=== PATIENT | female | born 1970 | race Caucasian/White ===

== ENCOUNTER 2018-01-30 10:40 | Emergency (ER) | payer OTHER ==
[~2018-01-30] VITALS: Ht 167.6 cm; Wt 63.5 kg
[~2018-01-30 10:40] MED LIST: ASPIR 8181 MG PO; ASPIRIN EC325 M1 PO; BACTRIM DS TAB1 EACH PO; CLEOCIN HCL300 MG PO; HYDROCODON-ACE1 EAC7 PO; HYDROCODONE-AP1 EAC6 PO; IBUPROFEN 600600 M1 PO; LIPITOR10 MG PO; NORCO 5-325 TA1 EACH PO; TAMSULOSIN HCL0.4 MG PO; TYLENOL325 MG PO; VENTOLIN HFA 1818 GM INH; VITAMIN B-1100 M1 PO
[2018-01-30] MEDS ORDERED: NAPROSYN500 MG PO (11:53)
[2018-01-30] MEDS ORDERED: TRAMADOL 50 MG50 MG PO (11:53)
[2018-01-30 12:15] VITALS: BP 136/81
== END 2018-01-30 12:15 | disposition home or self-care (01) ==
LOC: ER 10:40
DX: S83.91XA Sprain of unspecified site of right knee, initial encounter (principal); S09.90XA Unspecified injury of head, initial encounter; W18.30XA Fall on same level, unspecified, initial encounter; Y93.89 Activity, other specified; Y92.89 Other specified places as the place of occurrence of the external cause; Y99.8 Other external cause status; J45.909 Unspecified asthma, uncomplicated; G43.909 Migraine, unspecified, not intractable, without status migrainosus; F17.210 Nicotine dependence, cigarettes, uncomplicated

== ENCOUNTER 2019-09-22 11:43 | Inpatient (IN) | payer OTHER ==
[~2019-09-22] VITALS: Ht 167.6 cm; Wt 66.7 kg
[~2019-09-22 11:43] MED LIST changes: +NAPROSYN500 MG PO; +TRAMADOL 50 MG50 MG PO
[2019-09-22 11:45] VITALS: BP 140/78
[2019-09-22 12:08] LABS: URINE BLOOD 2+ (Negative); URINE CLARITY CLEAR; URINE COLOR YELLOW; URINE GLUCOSE-RANDOM* NEGATIVE (Negative); URINE KETONES 3+ (Negative); URINE LEUKOCYTES-REFLEX NEGATIVE (Negative); URINE NITRITE-REFLEX NEGATIVE (Negative); URINE PROTEIN (DIPSTICK) 2+ (Negative); URINE SPECIFIC GRAVITY >= 1.030 (1.005-1.035); URINE UROBILINOGEN 0.2 E.U./dl (0.2-1.0)
[2019-09-22 12:14] LABS: ICTOTEST (BILI CONFIRMATORY) Negative (Negative); URINE BILIRUBIN NEGATIVE (Negative)
[2019-09-22 12:15] LABS: URINE REDUCING SUBSTANCE NEGATIVE
[2019-09-22 12:29] LABS: BACTERIA-REFLEX 1-9 Few /HPF (None Seen); CASTS None Seen /LPF (None Seen); CRYSTALS None Seen /LPF (None Seen); SQUAMOUS >10 Many /LPF (0-3); URINE RBC 0-2 Rare /HPF (0-2); URINE WBC-REFLEX 0-5 Rare /HPF (0-5)
[2019-09-22 12:33] LABS: ALBUMIN 3.3 g/dL (3.4-5.0); CALCIUM 8.2 mg/dL (8.5-10.1); CREATININE 1.5 mg/dL (0.6-1.0); POTASSIUM 3.7 mmol/L (3.5-5.1); TOTAL BILIRUBIN 0.7 mg/dL (0.2-1.0); TOTAL PROTEIN 6.8 g/dL (6.4-8.2)
[2019-09-22 12:36] LABS: ABSOLUTE NEUTROPHILS 12.3 thou/uL (1.4-8.2); BASOPHILS 0.4 % (0.0-2.0); HEMATOCRIT 52.8 % (37.0-47.0); HEMOGLOBIN 17.6 gm/dL (12.0-15.0); LYMPHOCYTES 5.5 % (24.0-44.0); MCH 34.2 pg (26.0-34.0); MCHC 33.4 g/dL (28.0-37.0); MCV 102.5 fL (80.0-100.0); MONOCYTES 2.9 % (1.0-8.0); PLATELET COUNT 242 thou/uL (150-400); POLYS 91.2 % (36.0-66.0); RBC 5.15 mil/uL (4.20-5.00); RDW 13.3 % (10.5-14.5); WBC 13.5 thou/uL (4.0-11.0)
[2019-09-22 13:10] LABS: BE(vivo) -17.8 mmol/L (-2 to +3); HCO3 11.1 mmol/L (22.0-26.0); PCO2 VENOUS 36.7 mmHg (41.0-51.0); PO2 VENOUS 44.7 mmHg (35.0-45.0)
[2019-09-22 14:04] VITALS: BP 133/69
[2019-09-22 14:27] LABS: AMP/METHAMP Negative (Negative); BARBITURATES Negative (Negative); BENZODIAZEPINES Negative (Negative); COCAINE Negative (Negative); METHADONE Negative (Negative); OPIATES Negative (Negative); PCP Negative (Negative)
[2019-09-22 15:50] LABS: ANION GAP 23 mmol/L (7-16); BUN 12 mg/dL (7-18); CALCIUM 7.7 mg/dL (8.5-10.1); CHLORIDE 100 mmol/L (98-107); CO2 12 mmol/L (21-32); CREATININE 1.1 mg/dL (0.6-1.0); GLUCOSE 79 mg/dL (74-106); POTASSIUM 4.1 mmol/L (3.5-5.1); SODIUM 135 mmol/L (136-145)
[2019-09-22 15:55] LABS: ALBUMIN 3.8 g/dL (3.4-5.0); SGOT 29 U/L (15-37); SGPT 18 U/L (30-65); TOTAL BILIRUBIN 0.4 mg/dL (0.2-1.0); TOTAL PROTEIN 7.3 g/dL (6.4-8.2)
[2019-09-22 16:13] LABS: LIPASE 6149 U/L (73-393)
[2019-09-22 17:35] VITALS: BP 131/62
[2019-09-22 18:32] VITALS: BP 128/73
--- NOTE | 2019-09-22 18:38 | NUR ---
PT TRANSTERED TO THE UNIT FROM THE EMERGENCY DEPT. PT ORIENTED TO ROOM AND BED SPACE. IV FLUIDS STARTED AND MORPHINE GIVEN FOR PAIN WITH MOD RELIEF. PT PLACED ON MONITOR AND VITAL SIGNS TAKEN, NO CO'S AT THE PRESENT TIME.
--- NOTE | 2019-09-22 20:30 | NUR ---
ASSUMED CARE FROM DAY SHIFT. PT ALERT ORIENTED X4 ADMISSION ASSESSMENT AND DATA BASE COMPLETED. PT C/O ABD PAIN , HEATING PAD OREDERED. BLOOD GLUCOSE 62 JUICE GIVEN AND TOLERATED WELL RECHECKED AND BLOOD GLUCOSE 72. UP TO BATHROOM WITHOUT DIFF. 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 PAIN MEDICATION GIVEN , PT DENIES NAUSEA,. GI CONSULT CALLED . PT RESTED WELL THROUGHOUT HOURLY ROUNDS.
[2019-09-23 00:27] VITALS: BP 116/54
[2019-09-23 04:38] VITALS: BP 124/66
[2019-09-23 04:54] LABS: HEMATOCRIT 42.5 % (37.0-47.0); MCHC 34.6 g/dL (28.0-37.0); MCV 101.2 fL (80.0-100.0); RBC 4.2 mil/uL (4.20-5.00); RDW 13.3 % (10.5-14.5)
[2019-09-23 05:03] LABS: HEMOGLOBIN 14.7 gm/dL (12.0-15.0)
[2019-09-23 05:06] LABS: CALCIUM 8.8 mg/dL (8.5-10.1); MAGNESIUM 1.8 mg/dL (1.8-2.4)
[2019-09-23 07:20] VITALS: BP 134/84
[2019-09-23 12:49] VITALS: BP 125/74
[2019-09-23 15:54] VITALS: BP 119/76
--- NOTE | 2019-09-23 18:52 | NUR ---
RECEIVED PT'S CARE AROUND 0730; PT. ON BED; ALERT; DURING AM ASSESSMENT PT. AOX4; ST. PAIN 05/23; NO REQUESTED PRN PAIN MEDICATION; AM MEDICATIONS GIVEN; REQUESTED PRN PAIN MEDICATION; MEDICATION GIVEN; ST. 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 ON CL DIET; ORDERS RECEIVED; PT. TOLERATED WELL; ASSESSMENT CHARGED; FOLLOWING POC; WILL PASS ON REPORT;
[2019-09-23 19:51] VITALS: BP 142/74
[2019-09-24 01:11] LABS: GLYCOHEMOGLOBIN (HGB A1C) 5.2 % (4.8-5.6)
[2019-09-24 04:30] VITALS: BP 142/83
--- NOTE | 2019-09-24 04:38 | NUR ---
ASSUMED PT CARE AROUND 1930. AXOX4. INDEPENDENT WITH ADLs. VSS. KEPT NPO POST MN FOR EGD IN AM. NO S/S ACUTE DISTRESS NOTED OR REPORTED AT THIS TIME. WILL CONT TO MONITOR FOR ANY CHANGES IN CONDITION.
[2019-09-24 05:57] LABS: HEMATOCRIT 39.6 % (37.0-47.0); HEMOGLOBIN 13.9 gm/dL (12.0-15.0); RBC 3.96 mil/uL (4.20-5.00); RDW 13.2 % (10.5-14.5); WBC 4.8 thou/uL (4.0-11.0)
[2019-09-24 06:17] LABS: ALBUMIN 3.2 g/dL (3.4-5.0); CALCIUM 8.9 mg/dL (8.5-10.1); CREATININE 0.7 mg/dL (0.6-1.0); POTASSIUM 3.1 mmol/L (3.5-5.1); TOTAL BILIRUBIN 0.5 mg/dL (0.2-1.0); TOTAL PROTEIN 6.7 g/dL (6.4-8.2)
[2019-09-24 07:20] VITALS: BP 139/86
--- NOTE | 2019-09-24 11:18 | NUR ---
Spoke with patient who admits with pancreatitis. 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 She reports no insurance. Gave her Health resource guide and clinic infor. [facility] to f/u with patient.
--- NOTE | 2019-09-24 15:24 | NUR ---
ASSUMED CARE PT SHIFT CHANGE. ASSESSMENT CHARTED.MEDS GIVEN PER APR. PT ALERT AND ORIENTED. VSS. C/O PAIN IN ABDOMEN, MANAGED WITH IV PAIN MEDS. PT HAD EGD THIS SHIFT-REFER TO RESULTS. PT ON CLEAR LIQUID DIET, TOLERATING WELL. PT HOPEFUL TO DC HOME TOMORROW. CONTINUING TO MONITOR.
[2019-09-24 15:52] VITALS: BP 149/89
--- NOTE | 2019-09-24 18:27 | NUR ---
PT TRANSFERRED TO FLOOR AROUND 1730. SHE IS ALERT AND ORIENTED. NO COMPLAINTS AT THIS TIME. PIV IN PLACE. PT IS UAL, STEADY ON HER FEET. EDUCATED TO CALL IF NEEDS ARISE, CALL LIGHT IN REACH. WILL CONTINUE TO MONITOR
[2019-09-24 19:31] VITALS: BP 147/71
--- NOTE | 2019-09-25 02:47 | NUR ---
ASSUMED PT CARE AT APPROX 1915. PT IS A&O x4. PT HAS A LEFT AC WITH FLUIDS RUNNING AT 125. PT IS STEADY ON HER FEET. PT HAS COMPLAINTS OF PAIN. PT STATES THAT SHE IS COMFORTABLE IN HER ROOM. PT ASKS FOR SOMETHING ELSE TO MANAGE HER PAIN. I SPOKE WITH THE [employer] ADMISSIONS REPRESENTATIVE AND SHE DECLINED.PT IS WATCHING TELEVISION IN HER ROOM. WILL CONTINUE TO MONITOR.
[2019-09-25 07:00] VITALS: BP 138/67
[2019-09-25 07:17] LABS: ALBUMIN 2.8 g/dL (3.4-5.0); CALCIUM 8.7 mg/dL (8.5-10.1); CREATININE 0.5 mg/dL (0.6-1.0); TOTAL BILIRUBIN 0.6 mg/dL (0.2-1.0); TOTAL PROTEIN 6.2 g/dL (6.4-8.2)
[2019-09-25 07:28] LABS: POTASSIUM 2.7 mmol/L (3.5-5.1)
--- NOTE | 2019-09-25 09:19 | P ---
[facility] [place] [address] PROCEDURE REPORT Name: HAILEE GRANDE Room #: 449-I ADM IN M.R.#: [id number] Admission: 09/22/19 Attend Phys: Tani Pratt Discharge: Date of : 70 Report #: [id number] THIS REPORT FOR: cc: Sohail Mcghee,William Franklin MD ~ CC: Sohail Pratt MD PROCEDURE PERFORMED: Upper endoscopy with biopsies. HISTORY OF PRESENT ILLNESS: The patient is a 49-year-old female who was admitted on 09/22/2019 for abdominal pain. She was noted to have an elevated lipase in the 6[address] range. CT scan of the abdomen and pelvis showed stranding and edema around the pancreas and duodenum in the area of the head of the pancreas. Peptic ulcer disease or duodenal process not excluded. The patient does report heartburn and takes Rolaids on a p.r.n. basis. She has been started on PPI therapy. Her lipase today is 5942. Her bilirubin remains normal at 0.5. LFTs are all normal. Plan is for upper endoscopy. DESCRIPTION OF PROCEDURE: The risks and benefits of the procedure were explained to the patient, those risks including but not limited to bleeding, perforation and the risk of sedation. She understood these risks and gave informed consent. Sedation was given using propofol per anesthesia. Next, using a standard Olympus upper endoscope, the scope was placed in the patient's mouth and advanced under direct vision through the esophagus, stomach and into the third portion of the duodenum. The larynx was normal in appearance. The upper and mid esophagus was normal. In the distal esophagus, grade B erosive esophagitis was noted. Upon entering the stomach, a small hiatal hernia was noted. There was a moderate diffuse gastritis noted in the gastric fundus and body. A small amount of liquid was noted in the stomach. This was aspirated away. Biopsies were obtained to rule out H. pylori. The gastric antrum was normal. The pylorus was normal and patent. In the duodenal bulb, there was a mild duodenitis. No evidence of ulcers or bleeding. The first, second and third portion of the duodenum were normal. The major papilla was seen and normal in appearance with bile drainage noted from the major papilla. At this point, the scope was then withdrawn and the procedure terminated. The patient tolerated the procedure well. IMPRESSION: 1. Grade B erosive esophagitis. 2. Gastritis. 3. Small hiatal hernia. 4. Duodenitis. RECOMMENDATIONS: [address] [address] PROCEDURE REPORT Name: HAILEE GRANDE Room #: 449-I [facility] ..#: [id number] Admission: 09/22/19 Attend Phys: Tani Pratt Discharge: Date of : 70 Report #: [id number] 1. Await biopsy results. 2. Continue daily PPI therapy. 3. Etiology of pancreatitis, likely due to alcohol. The patient did have a mild elevation in her triglyceride at 261. We will continue clear liquids today and monitoring. Thank you for allowing me to participate in her care. <ELECTRONICALLY SIGNED> By: William Oliveira MD 09/25/19 0919 0945 1009 William Oliveira MD /nt
--- NOTE | 2019-09-25 17:06 | PATH ---
[facility] [address] [place] [address] PATHOLOGY RPT PROCEDURE Name: CARMEN SEXTON Room #: 449-I ADM IN M.R.#: [id number] Admission: 09/22/19 Date of : 70 Discharge: Report #: [id number] Path Case #: [id number] [facility] Accession Number: [id number] . 01 Material submitted: . stomach - BIOPSY OF GASTRITIS TO R/O H. PYLORI . 01 Clinical history: . R/O H. pylori; N/V Hyperglycemia; duodenitis/pancreatitis; TANYA . 02 Diagnosis: Gastric mucosa, gastritis, rule out H. pylori, endoscopic biopsy: - Mild chronic inflammation along with features of reactive gastropathy. - Negative for intestinal metaplasia or atrophy. - Negative for Helicobacter pylori (properly controlled immunohistochemical performed). (IUV:pit 09/25/2019) QTP 09/25/2019 1304 Local . 02 Electronically signed: . Debbie Diez MD, Pathologist NPI- [id number] . 01 Gross description: . The specimen is received in formalin, labeled "Carmen Sexton, biopsy of gastritis to R/O H. pylori". Received are two segments of pale connolly soft tissue measuring 0.5 cm each in maximum dimensions. The specimen is submitted entirely in cassette A1. (CAA; 09/24/2019) QAC/QA 09/24/2019 1813 Local . 02 Pathologist provided ICD-10: K29.50 . 02 CPT . 628058, F53532 Specimen Comment: A courtesy copy of this report has been sent to [phone], [phone] Specimen Comment: [phone], Specimen Comment: Report sent to ,DR ISABEL / DR MCCONNELL Performed at: [address] [id number] MD Juvenal Vázquez MD Phone: [phone] Performed at: [address] [address] PATHOLOGY RPT PROCEDURE Name: CARMEN SEXTON ROSITA Room #: 449-I ADM IN M.R.#: [id number] Admission: 09/22/19 Date of : 70 Discharge: Report #: [id number] Path Case #: [id number] [address], [place], [place] [id number] MD Debbie Diez MD Phone: [phone]
--- NOTE | 2019-09-25 18:36 | NUR ---
PT ALERT AND ORIENTED TIMES FOUR. VSS, IVF INFUSING PER ORDER. PT C/O PAIN PRN PAIN MEDICATIONS GIVEN WITH GOOD RELEIF. PT UP AROUND THE ROOM WITH STEADY GAIT. PT DAUGHTER AT BEDSIDE. PT WILL BE NPO AT MIDNIGHT FOR ULTRASOUND IN THE AM. PT SLOWLY PROGRESSING TOWRADS POC GOALS.
[2019-09-25 19:45] VITALS: BP 138/88
--- NOTE | 2019-09-26 03:43 | NUR ---
ASSUMED PT CARE AROUND 1930. AXOX4. INDEPENDENT OF ADLs. CALLS APPROPRIATELY FOR HELP. KEPT NPO POST MN FOR US ABD IN AM. NO S/S ACUTE DISTRESS NOTED OR REPORTED AT THIS TIME. WILL CONT TO MONITOR FOR ANY CHANGES IN CONDITION.
[2019-09-26 06:28] LABS: CALCIUM 8.9 mg/dL (8.5-10.1); CREATININE 0.5 mg/dL (0.6-1.0); POTASSIUM 3.2 mmol/L (3.5-5.1)
[2019-09-26 06:42] LABS: HEMATOCRIT 35.3 % (37.0-47.0); HEMOGLOBIN 12.2 gm/dL (12.0-15.0); MCH 34.3 pg (26.0-34.0); MCHC 34.7 g/dL (28.0-37.0); MCV 98.8 fL (80.0-100.0); RBC 3.57 mil/uL (4.20-5.00); RDW 12.8 % (10.5-14.5); WBC 5.4 thou/uL (4.0-11.0)
[2019-09-26 07:03] VITALS: BP 146/84
[2019-09-26 08:08] VITALS: BP 146/84
[2019-09-26 15:17] VITALS: BP 145/87
--- NOTE | 2019-09-26 16:37 | NUR ---
PT HAD ABD ULTRASOUND DONE THIS DAY. TO ADVANCE DIET AND ANTICPATE DC TOMORROW. CM TO FOLLOW INDICATED WITH DC PLANNING.
[2019-09-26 20:26] VITALS: BP 147/92
--- NOTE | 2019-09-27 03:55 | NUR ---
ASSUMED CARE OF PT AT 1900. PT IS A/O X4 AND UP AD VANI. CALLS OUT APPROPRIATELY. PT C/O GENERALIZED PAIN TO ABDOMEN. PRN PAIN MEDICATION GIVEN DIRECTED. AT THIS TIME, PT IS LYING IN HER BED AND APPEARS TO BE SLEEPING. PT IS PROGRESSING TOWARDS D/C PLAN OF CARE GOALS. CALL LIGHT IS WITHIN REACH. WILL CONTINUE TO MONITOR.
[2019-09-27 07:03] VITALS: BP 136/93
[2019-09-27] MEDS ORDERED: PROTONIX40 M2 PO (09:00)
[2019-09-27 11:07] VITALS: BP 136/93
--- NOTE | 2019-09-27 12:21 | NUR ---
Assumed pt care at 7am.Pt in bed very anxious about dc home today.Assessment completed.vss.Pt ate 100% of breakfast and tolerated am meds.Dr Nguyen here,dc order noted.Dc summary compile and reviewed with pt. jonah cheema dc'd.At 1130, pt dc home ambulatory with dtr.
== END 2019-09-27 12:30 | disposition home or self-care (01) | DRG 439 ==
LOC: ER 11:43 → EROBS 14:16 → 2N 17:35 → 4W 09-24 17:34
PROVIDERS: Hospitalist; Nurse Practitioner; Physician Assistant; ADMIT Hospitalist; ATTEND Hospitalist
PROC: 0DB68ZX Excision of Stomach, Via Natural or Artificial Opening Endoscopic, Diagnostic (ICD-10-PCS; principal; 2019-09-22)
DX: K85.90 Acute pancreatitis without necrosis or infection, unspecified (principal); K22.10 Ulcer of esophagus without bleeding; N17.9 Acute kidney failure, unspecified; E87.1 Hypo-osmolality and hyponatremia; K29.70 Gastritis, unspecified, without bleeding; G43.909 Migraine, unspecified, not intractable, without status migrainosus; K86.1 Other chronic pancreatitis; J45.909 Unspecified asthma, uncomplicated; K29.80 Duodenitis without bleeding; F17.210 Nicotine dependence, cigarettes, uncomplicated; E86.0 Dehydration; R73.9 Hyperglycemia, unspecified; K44.9 Diaphragmatic hernia without obstruction or gangrene; K76.9 Liver disease, unspecified; F19.10 Other psychoactive substance abuse, uncomplicated; E87.6 Hypokalemia; Z20.828 Contact with and (suspected) exposure to other viral communicable diseases; Z79.899 Other long term (current) drug therapy; Z86.73 Personal history of transient ischemic attack (TIA), and cerebral infarction without residual deficits
CPT/HCPCS: 10045; 10081; 10194; 62110; 62900; 70005

== ENCOUNTER 2020-08-05 00:41 | Emergency (ER) | payer OTHER ==
[~2020-08-05] VITALS: Ht 167.6 cm; Wt 63.5 kg
[~2020-08-05 00:41] MED LIST changes: +PROTONIX40 M2 PO
[2020-08-05] MEDS ORDERED: NOHOMEMEDICATIONS (00:50)
[2020-08-05 01:37] LABS: ABSOLUTE NEUTROPHILS 4.7 thou/uL (1.4-8.2); BASOPHILS 0.4 % (0.0-2.0); EOSINOPHILS 0.8 % (0.0-3.0); HEMATOCRIT 40.3 % (37.0-47.0); HEMOGLOBIN 13.8 gm/dL (12.0-15.0); LYMPHOCYTES 20.4 % (24.0-44.0); MCH 33.7 pg (26.0-34.0); MCHC 34.2 g/dL (28.0-37.0); MCV 98.5 fL (80.0-100.0); MONOCYTES 4.7 % (1.0-8.0); PLATELET COUNT 194 thou/uL (150-400); POLYS 73.7 % (36.0-66.0); RBC 4.09 mil/uL (4.20-5.00); RDW 13.4 % (10.5-14.5); WBC 6.4 thou/uL (4.0-11.0)
[2020-08-05 01:39] LABS: ANION GAP 11 mmol/L (7-16); BUN 6 mg/dL (7-18); CALCIUM 8.4 mg/dL (8.5-10.1); CHLORIDE 102 mmol/L (98-107); CO2 26 mmol/L (21-32); CREATININE 0.8 mg/dL (0.6-1.0); GLUCOSE 96 mg/dL (74-106); POTASSIUM 3.6 mmol/L (3.5-5.1); SODIUM 139 mmol/L (136-145)
[2020-08-05 01:49] LABS: ALBUMIN 3.5 g/dL (3.4-5.0); SGOT 27 U/L (15-37); SGPT 24 U/L (30-65); TOTAL BILIRUBIN 0.2 mg/dL (0.2-1.0); TROPONIN-I <0.06 ng/mL (<0.06)
[2020-08-05 02:30] VITALS: BP 123/72
--- NOTE | 2020-08-05 07:15 | EKG ---
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: : 1970 Requested By: Remington Infante Order Number: [id number] MD: Lebron Grubbs Measurements Intervals [place] Rate: 64 P: 52 OR: 161 QRS: 48 QRSD: 93 T: 50 QT: 414 QTc: 427 Interpretive Statements Sinus rhythm RSR' in V1 or V2, right VCD or RVH Compared to ECG 04/26/2016 16:22:25 Right ventricular hypertrophy now present RSR' in V1 or V2 now present Electronically Signed On 08-05-2020 7:15:12 CDT by Lebron Grubbs [email or web address] <ELECTRONICALLY SIGNED> By: Lebron Grubbs MD, [facility] 08/05/20 0715 8 8 Lebron Grubbs MD, FAC /EPI
== END 2020-08-05 02:37 | disposition home or self-care (01) ==
LOC: ER 00:41
PROVIDERS: Emergency Medicine
DX: T67.5XXA Heat exhaustion, unspecified, initial encounter (principal); F17.210 Nicotine dependence, cigarettes, uncomplicated; J45.909 Unspecified asthma, uncomplicated; X58.XXXA Exposure to other specified factors, initial encounter; Y93.89 Activity, other specified; Y92.89 Other specified places as the place of occurrence of the external cause; Y99.8 Other external cause status

== ENCOUNTER 2020-08-10 13:57 | Emergency (ER) | payer OTHER ==
[~2020-08-10] VITALS: Ht 167.6 cm; Wt 63.5 kg
[~2020-08-10 13:57] MED LIST changes: +NOHOMEMEDICATIONS
[2020-08-10 14:52] LABS: HEMATOCRIT 44.8 % (37.0-47.0); HEMOGLOBIN 15.2 gm/dL (12.0-15.0); MCV 100.1 fL (80.0-100.0); PLATELET COUNT 202 thou/uL (150-400); RBC 4.47 mil/uL (4.20-5.00); RDW 13.9 % (10.5-14.5); WBC 9.3 thou/uL (4.0-11.0)
[2020-08-10 15:05] LABS: CALCIUM 9.7 mg/dL (8.5-10.1); CREATININE 0.9 mg/dL (0.6-1.0); POTASSIUM 3.8 mmol/L (3.5-5.1)
[2020-08-10 15:11] LABS: TOTAL BILIRUBIN 0.9 mg/dL (0.2-1.0); TOTAL PROTEIN 8.3 g/dL (6.4-8.2)
[2020-08-10] MEDS ORDERED: ULTRAM 50MG TAB50 MG PO (17:13)
[2020-08-10 17:14] VITALS: BP 122/71
== END 2020-08-10 17:14 | disposition home or self-care (01) ==
LOC: ER 13:57
PROVIDERS: Emergency Medicine
DX: S20.211A Contusion of right front wall of thorax, initial encounter (principal); R10.9 Unspecified abdominal pain; G43.909 Migraine, unspecified, not intractable, without status migrainosus; J45.909 Unspecified asthma, uncomplicated; F17.210 Nicotine dependence, cigarettes, uncomplicated; W01.0XXA Fall on same level from slipping, tripping and stumbling without subsequent striking against object, initial encounter; Y93.89 Activity, other specified; Y92.89 Other specified places as the place of occurrence of the external cause; Y99.0 Civilian activity done for income or pay